=== PATIENT | male | born 1960 | race Caucasian/White ===

== ENCOUNTER 2020-05-16 00:42 | Inpatient (IN) | payer OTHER ==
[2020-05-16 00:55] VITALS: TEMP 97.8
[2020-05-16] MEDS ORDERED: KETOROLAC 15 MG/ML 1 ML VIAL IM STA (01:01)
[2020-05-16] MEDS ORDERED: SODIUM CHLORIDE 0.9% 1,000 ML IV ONE (01:02)
[2020-05-16] MEDS ORDERED: MIDAZOLAM 1 MG/ML 5 ML VIAL IV STA (01:03)
[2020-05-16] MEDS ORDERED: KETOROLAC 15 MG/ML 1 ML VIAL IVP STA (01:03)
--- NOTE | 2020-05-16 01:22 | XR ---
EXAMINATION TYPE: XR ankle complete LT DATE OF EXAM: 05/16/2020 COMPARISON: NONE HISTORY: Pain TECHNIQUE: 3 views FINDINGS: There is transverse fracture of the medial malleolus. There is oblique fracture of the dist al fibula. There is no dislocation. There is 9 mm lateral displacement of the talus. There is 9 mm la teral displacement of the tibia and fibula fragments. The tarsal bones appear intact. There is small Achilles calcaneal spur. IMPRESSION: Bimalleolar fracture of the left ankle with mild lateral displacement.
[2020-05-16 01:34] LABS: Basophils # (A) 0.1 k/uL (0-0.2); Basophils % (A) 1 %; Eosinophils # (A) 0.1 k/uL (0-0.7); Eosinophils % (A) 1 %; HCT 47.4 % (39.0-53.0); HGB 15.9 gm/dL (13.0-17.5); Lymphocytes # (A) 3.9 k/uL (1.0-4.8); Lymphocytes % (A) 41 %; MCH 32.1 pg (25.0-35.0); MCHC 33.5 g/dL (31.0-37.0); MCV 95.9 fL (80.0-100.0); Mean Platelet Volume 6.4; Monocytes # (A) 0.6 k/uL (0-1.0); Monocytes % (A) 6 %; Neutrophils # (A) 4.7 k/uL (1.3-7.7); Neutrophils % (A) 48 %; Platelet Count 271 k/uL (150-450); RBC 4.94 m/uL (4.30-5.90); RDW 12.3 % (11.5-15.5); WBC 9.7 k/uL (3.8-10.6)
[2020-05-16 01:44] LABS: ALT 37 U/L (4-49); AST 52 U/L (17-59); African American GFR (CKD) >90 (>60 ml/min/1.73 sqM); Albumin 4.3 g/dL (3.5-5.0); Alkaline Phosphatase 84 U/L (38-126); Anion Gap 11 mmol/L; Blood Urea Nitrogen 15 mg/dL (9-20); Calcium 8.8 mg/dL (8.4-10.2); Carbon Dioxide 21 mmol/L (22-30); Chloride 102 mmol/L (98-107); Glucose 92 mg/dL (74-99); Non-African American GFR(CKD) 87 (>60 ml/min/1.73 sqM); Potassium 5.6 mmol/L (3.5-5.1); Sodium 134 mmol/L (137-145); Total Bilirubin 0.6 mg/dL (0.2-1.3); Total Protein 6.9 g/dL (6.3-8.2)
[2020-05-16] MEDS ORDERED: KETAMINE 10 MG/ML 20 ML VIAL IV ONE ×2 (01:45→02:13)
--- NOTE | 2020-05-16 01:51 | CT ---
CT scan of the left ankle. History fracture. Injury. Pain. Comparison none. TECHNIQUE: Images were obtained from the lower tibia to the bottom of the foot without contrast. FINDINGS: There is transverse fracture of the medial malleolus. There is oblique fracture of the distal fibula at the lateral malleolus. There is lateral displacement of the talus and the fracture fragments. The lateral displacement is 9 mm. The posterior malleolus appears intact. The talus appears intact. The c alcaneus is intact. There are small Achilles calcaneal spur. Subtalar joint appears normal. Tarsal stef leatha are intact. The metatarsals are intact. There is minor spurring at the first MP joint. I see no f ocal bone destruction. The toes appear intact. IMPRESSION: Acute bimalleolar fracture of the ankle with mild lateral displacement of the fragments. No dislocati on.
[2020-05-16 01:59] LABS: INR 0.9 (<1.2); Partial Thromboplastin Time 24.6 sec (22.0-30.0); Prothrombin Time 9.6 sec (9.0-12.0)
[2020-05-16 02:00] LABS: Alcohol 272 mg/dL
--- NOTE | 2020-05-16 02:49 | ED ---
Lower Extremity Injury HPI - General Source: patient Mode of arrival: wheelchair Limitations: no limitations <Tania Garcia - Last Filed: 05/16/20 03:16> <Barbara Sykes - Last Filed: 05/16/20 04:24> - General Chief Complaint: Extremity Injury, Lower Stated Complaint: LT ankle injury Time Seen by Provider: 05/16/20 00:54 - History of Present Illness Initial Comments: 59-year-old male patient presented to the emergency department today for evaluation of left ankle injury. Patient states that he was running when he tripped and fell into a ditch. Patient states that he injured the ankle. Patient states he is having a lot of difficulty walking. Patient doesn't to drinking alcohol today. He denies any head, neck, or back injury. Denies previous injury to the ankle. Denies numbness or tingling to the foot. Patient denies any headache, neck pain, back pain, chest pain, shortness of breath, dizz iness, weakness, abdominal pain, nausea, vomiting, or difficulties with bowel movements or urination. (Tania Garcia) - Related Data Allergies Allergy/AdvReac Type Severity Reaction Status Date / Time Penicillins Allergy Unknown Verified 05/16/20 01:09 Childhood Review of Systems ROS Other: All systems not noted in ROS Statement are negative. <Tania Garcia - Last Filed: 05/16/20 03:16> ROS Other: All systems not noted in ROS Statement are negative. <Barbara Sykes - Last Filed: 05/16/20 04:24> ROS Statement: Those systems with pertinent positive or pertinent negative responses have been documented in the HPI. Past Medical History Past Medical History: No Reported History History of Any Multi-Drug Resistant Organisms: None Reported Past Surgical History: No Surgical Hx Reported Past Psychological History: No Psychological Hx Reported Smoking Status: Current every day smoker Past Alcohol Use History: Daily Past Drug Use History: None Reported <Tania Garcia - Last Filed: 05/16/20 03:16> General Exam Limitations: no limitations General appearance: alert, in no apparent distress, other (This is a well- developed, well-nourished adult male patient in no acute distress. Patient is obviously intoxicated and somewhat resistant to care. Vital signs upon presentation are temperature 97.8F, pulse 59, respirations 18, blood pressure 89/62, pulse ox 96% on room air.) Head exam: Present: atraumatic, normocephalic, normal inspection Eye exam: Present: normal appearance, PERRL, EOMI. Absent: scleral icterus, conjunctival injection, periorbital swelling Neck exam: Present: normal inspection, full ROM, other (Nontender, no step-off, no deformity to firm midline palpation of the posterior cervical spine. Full ra nge of motion without pain or limitation.). Absent: tenderness, meningismus, lymphadenopathy Respiratory exam: Present: normal lung sounds bilaterally. Absent: respiratory distress, wheezes, rales, rhonchi, stridor Cardiovascular Exam: Present: regular rate, normal rhythm, normal heart sounds. Absent: systolic murmur, diastolic murmur, rubs, gallop, clicks GI/Abdominal exam: Present: soft, normal bowel sounds. Absent: distended, tenderness, guarding, rebound, rigid Extremities exam: Present: full ROM, tenderness (Medial and lateral malleolus), normal capillary refill, other (There is obvious deformity of the left ankle. Skin is otherwise pink, warm, dry. Cap refills less than 3 seconds. Pedal and posttibial pulses are 2+ and equal bilaterally.). Absent: normal inspection, pedal edema, joint swelling, calf tenderness Back exam: Present: normal inspection, other (Nontender, no step-off, no deformity to firm midline palpation of the thoracic and lumbar vertebrae. Full range of motion without pain or limitation.). Absent: vertebral tenderness Neurological exam: Present: alert, oriented X3, CN II-XII intact Psychiatric exam: Present: normal affect, normal mood Skin exam: Present: warm, dry, intact, normal color. Absent: rash <Tania Garcia M - Last Filed: 05/16/20 03:16> Course Vital Signs 05/16/20 05/16/20 05/16/20 00:53 01:00 02:00 Temperature 97.8 F Pulse Rate 59 L 75 Respiratory 18 16 16 Rate Blood Pressure 89/62 107/49 112/69 O2 Sat by Pulse 96 94 L Oximetry Procedures - Orthopedic Splinting/Casting Injury #1 Side: left Lower Extremity Injury Location: short leg, ankle Lower Extremity Immobilizer: posterior splint, stirrup splint, Gerry wrap <Tania Garcia - Last Filed: 05/16/20 03:16> - [place] Protocol (Time Out) Procedure Performed:: sedation Performing Provider: Barbara Sykes Nurse: Meghann Escalera Respiratory Therapist: Priaynka Crane Timeout Date: 05/16/20 Timeout Time: 02:10 Patient Identification (2 identifiers required): Chart, Verbal, Arm Band, Name, Birthdate Patient/Legal [employer] has Confirmed: Identity, Site, Procedure, Consent Site: Left Ankle Site Marked: Not Applicable Site Verified With Patient/Guardian: Yes Final Confirmation: Procedure, Site, Laterality, Patient Position, Radiographs, Special Equipment, Confirmed w/Provider - Procedural Sedation Procedural Sedation Start Time: 02:10 Procedural Sedation Stop Time: 02:35 Indications: fracture/dislocation reduction ASA Class: II Mallampati Airway Score: 2 Preparation: skiagrapher applied, pulse oximeter, supplemental O2 applied, suction/airway equipment at bedside, IV secured Ketamine: IV Ketamine Dose: 88 Complications: none Patient Tolerated Procedure: well, no complications <Barbara Sykes - Last Filed: 05/16/20 04:24> - Orthopedic Splinting/Casting Injury #1 Additional Comments: Patient was padded with web roll. Neurovascular status intact after splint application. (Tania Garcia) Medical Decision Making - Lab Data Result diagrams: 05/16/20 01:20 05/16/20 01:20 - EKG Data -: EKG Interpreted by Co - Radiology Data Radiology results: report reviewed, image reviewed <Tania Garcia - Last Filed: 05/16/20 03:16> - Lab Data Result diagrams: 05/16/20 01:20 05/16/20 01:20 <Barbara Sykes - Last Filed: 05/16/20 04:24> - Medical Decision Making 59-year-old male patient presented to the emergency department today for evaluation of left ankle injury. Patient was intoxicated upon arrival and resistant to care. Physical examination did reveal soft tissue swelling and deformity to the left ankle. X-rays were obtained and did reveal a bimalleolar fracture. We did obtain labs which revealed an elevated alcohol level at 272. Otherwise were unremarkable. CT of the ankle was obtained to further evaluate the fracture, again revealed a bimalleolar fracture with lateral displacement of the fragments. Patient was very resistive to care and combative with staff so we did sedate him to apply a splint to the ankle. Patient would have been stable for discharge however he was too intoxicated to understand non-weightbearing status and care for his ankle. Also, he has no transportation or access to durable medical equipment. Dr. Randall is accepting. (Tania Garcia) I performed procedural sedation for the patient to aid in splinting due to the patient's level of intoxication and inability to cooperate. There was fear that the patient was a danger to himself if not in a splint because he was moving and attempting to walk, the bones are noted to be tenting the skin and I was c oncerned that if the patient attempted to stand he would open the fracture. Ketamine was used for sedation. Patient tolerated sedation well he had no emergence reaction or vomiting. After sedation patient was again attempting to stand on his splint attempting to get out of bed, not following instructions. The patient has no signs of head injury and he is profoundly intoxicated we will obtain head CT to rule out any acute intracranial abnormalities and plan to admit the patient for his own safety due to alcohol intoxication. This plan was discussed with Forrest VAZQUEZ for orthopedics on-call Dr. Ervin, he recommends admission to medicine for alcohol intoxication as a by mouth fracture is stable for discharge home and the patient is being admitted solely due to his intoxication and inability to adhere to treatment plan. Patient will be admitted for alcohol intoxication, alcohol withdrawal protocol was ordered. Due to persistent concern that the patient was non coperative and was trying to get out of bed he was treated with Shayne (Barbara Sykes) - Lab Data Lab Results 05/16/20 05/16/20 05/16/20 Range/Units 01:15 01:20 01:20 WBC 9.7 (3.8-10.6) k/uL RBC 4.94 (4.30-5.90) m/uL Hgb 15.9 (13.0-17.5) gm/dL Hct 47.4 (39.0-53.0) % MCV 95.9 (80.0-100.0) fL MCH 32.1 (25.0-35.0) pg MCHC 33.5 (31.0-37.0) g/dL RDW 12.3 (11.5-15.5) % Plt Count 271 (150-450) k/uL Neutrophils % 48 % Lymphocytes % 41 % Monocytes % 6 % Eosinophils % 1 % Basophils % 1 % Neutrophils # 4.7 (1.3-7.7) k/uL Lymphocytes # 3.9 (1.0-4.8) k/uL Monocytes # 0.6 (0-1.0) k/uL Eosinophils # 0.1 (0-0.7) k/uL Basophils # 0.1 (0-0.2) k/uL PT 9.6 (9.0-12.0) sec INR 0.9 (<1.2) APTT 24.6 (22.0-30.0) sec Sodium (137-145) mmol/L Potassium (3.5-5.1) mmol/L Chloride (98-107) mmol/L Carbon Dioxide (22-30) mmol/L Anion Gap mmol/L BUN (9-20) mg/dL Creatinine (0.66-1.25) mg/dL Est GFR (CKD-EPI)AfAm (>60 ml/min/1.73 sqM) Est GFR (CKD-EPI)NonAf (>60 ml/min/1.73 sqM) Glucose (74-99) mg/dL Calcium (8.4-10.2) mg/dL Total Bilirubin (0.2-1.3) mg/dL AST (17-59) U/L ALT (4-49) U/L Alkaline Phosphatase (38-126) U/L Total Protein (6.3-8.2) g/dL Albumin (3.5-5.0) g/dL Serum Alcohol mg/dL Blood Type Blood Type Confirm O Positive Blood Type Recheck Bld Type Recheck Status Antibody Screen Spec Expiration Date 05/16/20 05/16/20 Range/Units 01:20 01:20 WBC (3.8-10.6) k/uL RBC (4.30-5.90) m/uL Hgb (13.0-17.5) gm/dL Hct (39.0-53.0) % MCV (80.0-100.0) fL MCH (25.0-35.0) pg MCHC (31.0-37.0) g/dL RDW (11.5-15.5) % Plt Count (150-450) k/uL Neutrophils % % Lymphocytes % % Monocytes % % Eosinophils % % Basophils % % Neutrophils # (1.3-7.7) k/uL Lymphocytes # (1.0-4.8) k/uL Monocytes # (0-1.0) k/uL Eosinophils # (0-0.7) k/uL Basophils # (0-0.2) k/uL PT (9.0-12.0) sec INR (<1.2) APTT (22.0-30.0) sec Sodium 134 L (137-145) mmol/L Potassium 5.6 H (3.5-5.1) mmol/L Chloride 102 (98-107) mmol/L Carbon Dioxide 21 L (22-30) mmol/L Anion Gap 11 mmol/L BUN 15 (9-20) mg/dL Creatinine 0.95 (0.66-1.25) mg/dL Est GFR (CKD-EPI)AfAm >90 (>60 ml/min/1.73 sqM) Est GFR (CKD-EPI)NonAf 87 (>60 ml/min/1.73 sqM) Glucose 92 (74-99) mg/dL Calcium 8.8 (8.4-10.2) mg/dL Total Bilirubin 0.6 (0.2-1.3) mg/dL AST 52 (17-59) U/L ALT 37 (4-49) U/L Alkaline Phosphatase 84 (38-126) U/L Total Protein 6.9 (6.3-8.2) g/dL Albumin 4.3 (3.5-5.0) g/dL Serum Alcohol 272 H* mg/dL Blood Type O Positive Blood Type Confirm Blood Type Recheck No Previous Record Bld Type Recheck Status CABO Indicated Antibody Screen NEGATIVE Spec Expiration Date 05/19/2020 - 2319 - EKG Data EKG Comments: EKG obtained at 137 shows normal sinus rhythm with a ventricular rate of 68, [place] interval 186, QRS duration 92, QT 390, QTC 414. No evidence of ST elevation or depression. (Tania Garcia) - Radiology Data 3 views of the left ankle are obtained. Report is reviewed in its entirety. Impression by Dr. Harmon shows bimalleolar fracture of the left ankle is mild lateral displacement. CT of the left ankle and foot was obtained. Report was reviewed in its entirety. Impression by Dr. Harmon shows acute bimalleolar fracture of the ankle with mild lateral displacement of fragments. No dislocation. (Tania Garcia) Disposition Decision to Admit Reason: Admit from EC Decision Date: 05/16/20 Decision Time: 03:00 <Tania Garcia - Last Filed: 05/16/20 03:16> <Barbara Sykes - Last Filed: 05/16/20 04:24> Clinical Impression: Alcohol intoxication, Bimalleolar fracture of left ankle Disposition: ADMITTED IP TO THIS [facility] Condition: Serious
[2020-05-16] MEDS ORDERED: ZIPRASIDONE 20 MG VIAL IM STA (02:54)
[2020-05-16] MEDS ORDERED: NALOXONE 0.4 MG/ML 1 ML VIAL IV PRN (03:04)
[2020-05-16] MEDS ORDERED: THIAMINE 100 MG/ML 2 ML VIAL IM STA (03:06)
[2020-05-16] MEDS ORDERED: LORazepam 2 MG/ML INJ IV PRN ×4 (03:06)
--- NOTE | 2020-05-16 03:30 | P.HPIM ---
History of Present Illness H&P Date: 05/16/20 Chief Complaint: Left ankle pain 59-year-old male came into the hospital due to left ankle pain after sustaining a fall. He admits to drinking all call today. Currently patient is very combative and aggressive I wasn't able to interview the patient and her obtain any meaningful history patient requesting to leave the hospital however he is too intoxicated to understand plan of care as he should not weight-bear on his left foot due to fragmented fracture. Patient is aggressive and resisting care and recommendations, he was given Geodon in the ED and was still being very aggressive and combative security had to be called multiple times in the patient while I was in the room trying to interview him Per ER note seems like patient had some alcohol today and he fell into a ditch after which she noticed some pain in his left ankle and decided to come the hospital for evaluation CT imaging showed fragmented fracture of bilateral malleoli or so contacted recommended outpatient follow-up and placing the patient splint however patient was kept in the hospital due to severe alcohol intoxication and being very resistive to care and not understanding the severity of his injury and plan of care Review of Systems ROS unobtainable: due to mental status Past Medical History Past Medical History: No Reported History, Unable to Obtain History of Any Multi-Drug Resistant Organisms: None Reported Past Surgical History: No Surgical Hx Reported, Unable to Obtain Past Anesthesia/Blood Transfusion Reactions: Unable to Obtain Past Psychological History: No Psychological Hx Reported, Unable to Obtain Smoking Status: Current every day smoker Past Alcohol Use History: Daily Past Drug Use History: None Reported, Unable to Obtain - Past Family History Family Family Medical History: Unable to Obtain Medications and Allergies Allergies Allergy/AdvReac Type Severity Reaction Status Date / Time Penicillins Allergy Unknown Verified 05/16/20 01:09 Childhood Physical Exam Vitals: Vital Signs Temp Pulse Resp BP Pulse Ox 05/16/20 02:00 75 16 112/69 94 L 05/16/20 01:00 16 107/49 05/16/20 00:53 97.8 F 59 L 18 89/62 96 Intake and Output 05/15/20 05/15/20 05/16/20 14:59 22:59 06:59 Other: Weight 88.904 kg Deferred patient is currently combative resisting care yelling and screaming requesting to leave the hospital Results CBC & Chem 7: 05/16/20 01:20 05/16/20 01:20 Labs: Abnormal Lab Results - Last 24 Hours (Table) 05/16/20 Range/Units 01:20 Sodium 134 L (137-145) mmol/L Potassium 5.6 H (3.5-5.1) mmol/L Carbon Dioxide 21 L (22-30) mmol/L Serum Alcohol 272 H* mg/dL Assessment and Plan Assessment: Closed fracture of the left ankle secondary to a fall Status post splint Pain control Outpatient follow-up with orthopedics per their recommendations Patient is too intoxicated to cooperate or understand treatment plan he is very resistant to care combative with staff. Patient was kept in the hospital for his own safety Mild hyperkalemia Repeat levels in the morning Acute severe alcohol intoxication secondary to topical abuse Full precautions Benzos per CIWA scale Thiamine CODE STATUS: Full code DVT prophylaxis: Heparin subcu 3 times a day Discussed with: Patient, ER, RN Anticipated length of stay less than [address]: Home once sober
--- NOTE | 2020-05-16 04:41 | CT ---
EXAMINATION TYPE: CT brain nadeen braxton con DATE OF EXAM: 05/16/2020 COMPARISON: None HISTORY: Fall CT DLP: 1572.10 mGycm Automated exposure control for dose reduction was used. Exam performed without contrast. There is some cerebral cortical atrophy. There is no mass effect nor midline shift. There is no sign of intracranial hemorrhage. Calvarium is intact. There is normal aeration of the mastoid sinuses. The re is mucosal thickening in the right maxillary sinus. Bony orbits are intact. There is no evidence o f a blowout fracture. There is no evidence of orbital mass. There is some straightening of the cervical spine. There is disc space narrowing and spurring at C4-5 and C5-6. There is posterior endplate spur formation at C5-6 with mild encroachment on the spinal ca nal. The facet joints are intact. There is no evidence of cervical spine fracture. 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 No fracture. Mild cerebral atrophy. No acute intracranial abnormality. Mild right maxillary sinusitis.
[2020-05-16 04:51] VITALS: BP 134/90; PULSE 78; RESP 16
[2020-05-16 07:50] LABS: Appearance,Urine Clear (Clear); Bilirubin,Urine Negative (Negative); Blood,Urine Negative (Negative); Color,Urine Light Yellow; Glucose,Urine (UA) Negative (Negative); Ketones,Urine Negative (Negative); Leukocyte Esterase,Urine Negative (Negative); Nitrite,Urine Negative (Negative); Protein,Urine Negative (Negative); Specific Gravity,Urine 1.004 (1.001-1.035); Urobilinogen,Urine <2.0 mg/dL (<2.0)
[2020-05-16 08:03] LABS: Amphetamine Screen,Urine Not Detected (NotDetected); Barbiturate Screen,Urine Not Detected (NotDetected); Benzodiazepines Screen,Urine Not Detected (NotDetected); Cocaine Screen,Urine Not Detected (NotDetected); Methadone Screen, Urine Not Detected (NotDetected); Opiate Screen,Urine Not Detected (NotDetected); Oxycodone Screen, Urine Not Detected (NotDetected); Phencyclidine Screen,Urine Not Detected (NotDetected); Tricyclic Antidepressant,Urine Not Detected (NotDetected); Urn Cannabinoid Scrn Not Detected (NotDetected)
[2020-05-16] MEDS: MORPHINE SULFATE 4 MG/ML SYRINGE IV PRN ×2 (09:42→12:49)
--- NOTE | 2020-05-16 11:59 | P.CNOR ---
History of Present Illness - [facility] Consult date: 05/16/20 Requesting physician: Barbara Sykes Consult reason: fracture (left ankle bimalleolar fracture) History of present illness: Patient is a 59-year-old male who is seen in the emergency department room #28 for further evaluation of his left ankle. Patient admits to drinking alcohol and was drunk yesterday. He sustained a fall in a ditch. He has had left ankle pain that time difficulty with ambulation. He did present ambulatory to the emergency department. He was aggressive and combative at that time. His serum alcohol level was 272 at that time. X-ray and CT imaging of the left ankle is taken at time which did show evidence of a bimalleolar ankle fracture. He was placed in a splint and admitted for further evaluation due to his intoxication as I did not feel the patient was seen to go home. The patient has since sobered up and is answering questions properly. He had a splint placed over the left lower extremity. He has remained nonweightbearing on the left lower extremity. He continues have some pain at the left ankle but his pain has been fairly well controlled. He denies any other injuries at the time of the fall. Past Medical History Past Medical History: No Reported History, Unable to Obtain History of Any Multi-Drug Resistant Organisms: None Reported Past Surgical History: No Surgical Hx Reported, Unable to Obtain Past Anesthesia/Blood Transfusion Reactions: Unable to Obtain Past Psychological History: No Psychological Hx Reported, Unable to Obtain Smoking Status: Current every day smoker Past Alcohol Use History: Daily Past Drug Use History: None Reported, Unable to Obtain - Past Family History Family Family Medical History: Unable to Obtain Medications and Allergies Home Medications Medication Instructions Recorded Confirmed Type Unknown Bp Med 5 mg PO DAILY 05/16/20 05/16/20 History Allergies Allergy/AdvReac Type Severity Reaction Status Date / Time Penicillins Allergy Unknown Verified 05/16/20 10:25 Childhood Physical Examination Physical Exam: Patient is awake, alert, and oriented 3 Vital signs stable Good chest excursion with deep inspiration and expiration Posterior splint placement over the left lower extremity Splint is clean, dry, intact No pain with palpation of the left knee Patient is able to wiggle toes left foot Neurovascular intact left lower extremity Splint is not removed physical examination Results Pertinent studies: X-rays left ankle taken on 05/16/2020: Evidence of bimalleolar fracture of the left ankle with mild lateral displacement CT of the left ankle taken on 05/16/2020: Evidence of acute bimalleolar left ankle fracture transverse fracture of the medial malleolus in oblique fracture of the distal fibula at the lateral malleolus with lateral displacement of the fragment; no evidence of dislocation - Labs Labs: Abnormal Lab Results - Last 24 Hours (Table) 05/16/20 Range/Units 01:20 Sodium 134 L (137-145) mmol/L Potassium 5.6 H (3.5-5.1) mmol/L Carbon Dioxide 21 L (22-30) mmol/L Serum Alcohol 272 H* mg/dL H & H 05/16/20 Range/Units 01:20 Hgb 15.9 (13.0-17.5) gm/dL Hct 47.4 (39.0-53.0) % Coagulation 05/16/20 Range/Units 01:20 INR 0.9 (<1.2) Result Diagrams: 05/16/20 01:20 05/16/20 01:20 Assessment and Plan Assessment: Assessment: Left bimalleolar ankle fracture Status post fall Left ankle pain Intoxication at presentation to the emergency department (1) Left ankle pain Current Visit: Yes Status: Acute Code(s): M25.572 - PAIN IN LEFT ANKLE AND JOINTS OF LEFT FOOT SNOMED Code(s): 750366884 (2) Status post fall Current Visit: Yes Status: Acute Code(s): Z91.81 - HISTORY OF FALLING SNOMED Code(s): 871088605 (3) Alcohol intoxication Current Visit: Yes Status: Acute Code(s): F10.929 - ALCOHOL USE, UNSPECIFIED WITH INTOXICATION, UNSPECIFIED SNOMED Code(s): 88199710 (4) Bimalleolar fracture of left ankle Current Visit: Yes Status: Acute Code(s): S82.842A - DISPLACED BIMALLEOLAR FRACTURE OF LEFT LOWER LEG, INIT SNOMED Code(s): 996655091 Plan: Plan: 1. Patient has been discussed in detail Dr. Juan Ervin. After reviewing of imaging, further discussion with the patient, physical examination of the patient, we'll currently planned to continue with conservative treatment regards to his left ankle. He currently has a posterior splint placed at the left lower extremity. We discussed the splint should remain clean, dry, and intact. He is strict nonweightbearing on left lower extremity. He may elevate and apply ice over the splint comfort support as needed. We did discuss based on his fractures he will need surgical intervention to stabilize these fractures. We discussed we would plan to allow some of the swelling to reduce over the next week and we'll plan for surgical intervention next 05/24/2020. Patient will be cleared for discharge from an orthopedic standpoint. We'll plan have the patient follow up next 05/22/2020, for further evaluation the outpatient setting. He will follow up with Lyle Lozoya PA-C or Dr[facility]. 2. Patient has also been discussed with case management. A prescription is written for crutches. Patient may use crutches to aid in ambulation as needed. Crutches will be supplied prior to discharge. 3. Patient will continue to be seen and examined by medicine for further treatment and evaluation regards to his intoxication. Time with Patient: Greater than 30 (Including obtaining history, physical examination, reviewing of imaging, and dictation.)
--- NOTE | 2020-05-16 14:58 | P.DS ---
Providers Date of admission: 05/16/20 12:14 Expected date of discharge: 05/16/20 Attending physician: Vannessa Randall MD Consults: 05/16/20 03:05 Consult Physician Urgent Consulting Provider: Brina Ervin Consult Reason/Comments: marty Do you want consulting provider notified?: Already Contacted Primary care physician: Stated None Assessment: 59-year-old male came into the hospital due to left ankle pain after sustaining a fall. He admits to drinking all day prior to presentation. Patient was evaluated in the ER and was found to have closed fracture of the left ankle s econdary to his fall. He was also intoxicated with alcohol. Patient remained on observation and received aggressive IV fluid hydration. He had mild hyperkalemia that resolved with repeat lab work in the morning. He was seen and evaluated by orthopedic surgery. He was provided with crutches and his ankle was put in a splint. He was instructed for intermittent icing and leg elevation. Plan for surgical intervention next week. Patient was counseled extensively regarding alcohol cessation. He was provided with a prescription for [place] for pain control. He will be discharged home in a stable condition. He was sober at the time of discharge. For further details about this hospitalization please refer to the electronic chart. Patient Condition at Discharge: Serious Plan - Discharge Summary Discharge Rx Participant: Yes New Discharge Prescriptions: No Action Unknown Bp Med 5 mg PO DAILY Discharge Medication List Unknown Bp Med 5 mg PO DAILY 05/16/20 [History] Follow up Appointment(s)/Referral(s): Lyle Lozoya, BONY [PHYSICIAN TREE EXPERT] - 05/22/20 (Patient may follow-up with Lyle Lozoya PA-C or Dr. Juan Ervin at [facility] on 05/22/2020 following discharge. ) None,Stated [Primary Care Provider] - 1-2 days Patient Instructions/Handouts: Ankle Fracture (DC) Activity/Diet/Wound Care/Special Instructions: 1. Strict nonweightbearing on the left lower extremity 2. Keep splint over the left lower extremity clean, dry, intact 3. May elevate the left lower extremity and apply ice over the splint for comfort support as needed Discharge Disposition: HOME SELF-CARE
[2020-05-16] MEDS ORDERED: THIAMINE 100 MG TAB PO SCH (17:30)
== END 2020-05-16 16:36 | disposition home or self-care (01) | DRG 897 ==
LOC: EC 00:42 → 4SSUR 03:07 → OBSVTOIN 12:14 → 4SSUR 13:00
PROVIDERS: ADMIT Internal Medicine; ATTEND Internal Medicine
PROC: 2W3MX1Z Immobilization of Left Lower Extremity using Splint (ICD-10-PCS; principal; 2020-05-16)
DX: F10.120 Alcohol abuse with intoxication, uncomplicated (principal); S82.842A Displaced bimalleolar fracture of left lower leg, initial encounter for closed fracture; F17.200 Nicotine dependence, unspecified, uncomplicated; E87.5 Hyperkalemia; W17.89XA Other fall from one level to another, initial encounter; Y90.8 Blood alcohol level of 240 mg/100 ml or more; Y93.02 Activity, running; Z79.899 Other long term (current) drug therapy; Z88.0 Allergy status to penicillin
CPT/HCPCS: 29515; 36415; 70450; 72125; 80053; 80306; 80320; 81003; 84132; 85025; 85610; 85730; 86850; 86900; 86901; 93005; 96361; 96372; 96374; 96375; 96376; 99152; 99285

== ENCOUNTER → 2020-05-29 | Outpatient (CLI) | payer OTHER ==
[2020-05-29 12:18] LABS: Basophils % (A) 0 %; Eosinophils # (A) 0.1 k/uL (0-0.7); Eosinophils % (A) 1 %; HCT 49.5 % (39.0-53.0); HGB 16.5 gm/dL (13.0-17.5); Lymphocytes # (A) 2.3 k/uL (1.0-4.8); Lymphocytes % (A) 27 %; MCH 32.1 pg (25.0-35.0); MCHC 33.3 g/dL (31.0-37.0); MCV 96.4 fL (80.0-100.0); Mean Platelet Volume 6.3; Monocytes # (A) 0.5 k/uL (0-1.0); Monocytes % (A) 6 %; Neutrophils # (A) 5.4 k/uL (1.3-7.7); Neutrophils % (A) 64 %; Platelet Count 313 k/uL (150-450); RBC 5.14 m/uL (4.30-5.90); RDW 12.6 % (11.5-15.5); WBC 8.4 k/uL (3.8-10.6)
[2020-05-29 12:27] LABS: African American GFR (CKD) >90 (>60 ml/min/1.73 sqM); Anion Gap 6 mmol/L; Blood Urea Nitrogen 11 mg/dL (9-20); Calcium 9.8 mg/dL (8.4-10.2); Carbon Dioxide 29 mmol/L (22-30); Chloride 103 mmol/L (98-107); Glucose 99 mg/dL (74-99); INR 0.9 (<1.2); Non-African American GFR(CKD) >90 (>60 ml/min/1.73 sqM); Partial Thromboplastin Time 25.9 sec (22.0-30.0); Potassium 4.6 mmol/L (3.5-5.1); Prothrombin Time 9.7 sec (9.0-12.0); Sodium 138 mmol/L (137-145)
[2020-05-29 13:10] LABS: Appearance,Urine Clear (Clear); Bilirubin,Urine Negative (Negative); Blood,Urine Negative (Negative); Color,Urine Yellow; Glucose,Urine (UA) Negative (Negative); Ketones,Urine Negative (Negative); Leukocyte Esterase,Urine Negative (Negative); Nitrite,Urine Negative (Negative); Protein,Urine Negative (Negative); Specific Gravity,Urine 1.016 (1.001-1.035); Urobilinogen,Urine <2.0 mg/dL (<2.0)
--- NOTE | 2020-05-29 14:02 | XR ---
EXAMINATION TYPE: XR chest 2V DATE OF EXAM: 05/29/2020 COMPARISON: None HISTORY: 59-year-old male Z01.818, presurgical testing TECHNIQUE: PA and lateral views FINDINGS: The cardiomediastinal silhouette, aorta, and pulmonary vasculature are within normal limits. Lungs an d pleural spaces are clear. Mild hyperinflation. Tiny 4 mm retained metallic shard within the anterio r left mid thoracic soft tissues. IMPRESSION: 1. Mild hyperinflation may relate to depth of inspiration or underlying emphysema. Clinically correla te. Otherwise, no acute process seen. 2. A tiny 4 mm retained metallic foreign body within the anterior left mid chest soft tissues.
== END | disposition home or self-care (01) ==
LOC: LABPAT 11:06
PROVIDERS: ATTEND Orthopaedic Surgery Orthopaedic Surgery of the Spine
DX: Z01.818 Encounter for other preprocedural examination (principal); S82.842A Displaced bimalleolar fracture of left lower leg, initial encounter for closed fracture
CPT/HCPCS: 36415; 71046; 80048; 81003; 85025; 85610; 85730

== ENCOUNTER 2020-05-31 11:51 | Day surgery (SDC) | payer OTHER ==
[~2020-05-31 11:51] MED LIST: DEXAMETHASONE SOD PHOSPHATE 10 MG/ML 1 ML VIAL IV ONE; MIDAZOLAM 2 MG/2 ML VIAL IV PRN; ONDANSETRON 4 MG/2 ML VIAL IVP ONE; SCOPOLAMINE 1.5MG/72HR PATCH TRANSDERM ONE; ceFAZolin 1,000 MG in SODIUM CHLORIDE 0.9% IRRIGATIO 1,000 ML IRRIGATION ONE; fentaNYL (PF) 50 MCG/ML 2 ML AMP IV PRN; fentaNYL (PF) 50 MCG/ML 2 ML AMP IVP PRN
[2020-05-31] MEDS ORDERED: LIDOCAINE 1% (10MG/ML) FOR IV START INTRADERMA ONE (14:08)
[2020-05-31] MEDS: LACTATED RINGERS 1,000 ML IV SCH ×2 (14:08→21:45)
[2020-05-31] MEDS ORDERED: MIDAZOLAM 2 MG/2 ML VIAL IV ONE (14:23)
--- NOTE | 2020-05-31 14:46 | P.ANPRN ---
Procedure Note - Anesthesia - Nerve Block Performed Left Popliteal Single Time Out Performed: Yes Date of Procedure: 05/31/20 Procedure Start Time: 14:26 Procedure Stop Time: 14:33 Location of Patient: PreOp Indication: Acute Post-Operative Pain, Requested by Surgeon Sedation Type: Sedate with meaningful contact maintained Preparation: Sterile Prep, Sterile Dressing Position: Supine Catheter: None Needle Types: Pajunk Needle Gauge: 21 Ultrasound used to visualize needle placement: Yes Ultrasound used to observe medication spread: Yes Injectate: 0.5% Ropivacaine (see comment for volume) (15 ml + decadron 2 mg) Blood Aspirated: No Pain Paresthesia on Injection Noted: No Resistance on Injection: Normal Image Stored and Saved: Yes Events: Uneventful and Well Tolerated
--- NOTE | 2020-05-31 14:47 | P.ANPRN ---
Procedure Note - Anesthesia - Nerve Block Performed Left Adductor Canal Single Date of Procedure: 05/31/20 Procedure Start Time: 14:34 Procedure Stop Time: 14:40 Location of Patient: PreOp Indication: Acute Post-Operative Pain, Requested by Surgeon Sedation Type: Sedate with meaningful contact maintained Preparation: Sterile Prep, Sterile Dressing Position: Supine Catheter: None Needle Types: Pajunk Needle Gauge: 21 Ultrasound used to visualize needle placement: Yes Ultrasound used to observe medication spread: Yes Injectate: 0.5% Ropivacaine (see comment for volume) (15 ml + decadron 2 mg) Blood Aspirated: No Pain Paresthesia on Injection Noted: No Resistance on Injection: Normal Image Stored and Saved: Yes Events: Uneventful and Well Tolerated
[2020-05-31] MEDS ORDERED: LIDOCAINE 1% INJ 10MG/ML (20 ML MDV) ONE (16:31)
[2020-05-31] MEDS ORDERED: PROPOFOL 10 MG/ML 20 ML VIAL IV ONE (16:31)
[2020-05-31] MEDS ORDERED: HYDROmorphone (PF) 1 MG/ML ONE (16:31)
[2020-05-31] MEDS ORDERED: fentaNYL (PF) 50 MCG/ML 2 ML AMP ONE (16:31)
[2020-05-31] MEDS ORDERED: KETAMINE 10 MG/ML 20 ML VIAL ONE (16:31)
[2020-05-31] MEDS ORDERED: MIDAZOLAM 2 MG/2 ML VIAL ONE (16:31)
[2020-05-31] MEDS ORDERED: SUCCINYLCHOLINE CHLORIDE 100 MG/5 ML SYR IV ONE (16:31)
[2020-05-31] MEDS ORDERED: BUPIVACAINE (PF) 0.25% 30 ML VIAL SQ ONE (17:04)
[2020-05-31] MEDS ORDERED: LACTATED RINGERS 1,000 ML IV ONE (17:11)
[2020-05-31] MEDS ORDERED: BENZOCAINE/MENTHOL LOZENG 1 EACH LOZENGE MUCOUS MEM PRN (18:23)
[2020-05-31] MEDS ORDERED: HYDROmorphone 0.5 MG/0.5 ML SYRINGE IVP PRN (18:23)
[2020-05-31] MEDS ORDERED: HYDROmorphone 1 MG/ML 1 ML SYRINGE IVP PRN (18:23)
[2020-05-31] MEDS ORDERED: HYDROcodone/APAP 5-325MG 1 EACH TAB PO PRN ×2 (18:23)
[2020-05-31] MEDS: HYDROmorphone 0.5 MG/0.5 ML SYRINGE IVP PRN ×4 (18:31→18:52)
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
[2020-05-31] MEDS: SODIUM CHLORIDE 0.9% 1,000 ML IV SCH (19:22)
--- NOTE | 2020-05-31 21:25 | XR ---
Fluoroscopy INDICATION: Pain FINDINGS: Fluoroscopy time: 45 seconds. Images obtained: 4. IMPRESSIONS: 1. Documentation of fluoroscopy.
[2020-05-31] MEDS: diazePAM 5 MG TAB PO PRN (23:04)
[2020-06-01 07:52] VITALS: BP 161/89; PULSE 88; RESP 17; TEMP 98.9
[2020-06-01] MEDS: diazePAM 5 MG TAB PO PRN (08:15)
[2020-06-01] MEDS: SODIUM CHLORIDE 0.9% 1,000 ML IV SCH (08:15)
--- NOTE | 2020-06-01 08:32 | P.DS ---
Providers Date of admission: 05/31/2020 Attending physician: Brina Ervin Primary care physician: Stated None Hospital Course: The patient presented on the day of admission as per their operative note. He had a bimalleolar ankle fracture which was displaced and underwent open reduction internal fixation yesterday. He feels he is doing well. His ankle feels stable. Physical Exam The incision site is clean dry and intact. There is no erythema no drainage. There is no purulence no evidence of infection. The splint is intact and he is moving his toes well. Abdomen soft and nontender. Chest has good excursion with deep inspiration and expiration. The patient has active and passive range of motion intact at the upper and lower extremities. There is no acute change in neurologic status. Hospital Course Postoperative day 1 status post open reduction internal fixation of bimalleolar ankle fracture, doing well. The patient has been making good progress postoperatively. They have completed the prophylactic antibiotics without any signs or symptoms of infection. The patient has been able to advance their diet, and is tolerating diet adequately. The pain was initially controlled with IV medications and is now controlled appropriately with oral medications. The patient has been able to increase their mobilization. The patient has progressed appropriately. I think they are in good stable condition for discharge today. They will be sent home with appropriate prescriptions. I answered their questions to the best of my ability in a language that they can understand and they are agreeable with the plan. They will follow up as directed. Patient Condition at Discharge: Good Plan - Discharge Summary Discharge Rx Participant: No New Discharge Prescriptions: No Action amLODIPine BESYLATE 1 tab PO DAILY Atorvastatin Calcium [Lipitor] 1 tab PO DAILY Discharge Medication List Atorvastatin Calcium [Lipitor] 1 tab PO DAILY 05/31/20 [History] amLODIPine BESYLATE 1 tab PO DAILY 05/31/20 [History] Follow up Appointment(s)/Referral(s): Brina Ervin, [Doctor of Osteopathic Medicine] - 1 Week Activity/Diet/Wound Care/Special Instructions: Keep site clean. Keep splint intact at left lower extremity. Do not remove. Elevate left lower extremity as much as possible. Nonweightbearing left lower extremity. Discharge Disposition: HOME SELF-CARE
[2020-06-01] MEDS ORDERED: ATORVASTATIN 20 MG TAB PO SCH (09:00)
[2020-06-01] MEDS ORDERED: amLODIPine 10 MG TAB PO SCH (09:00)
== END 2020-06-01 09:50 | disposition home or self-care (01) ==
LOC: OR 11:51 → 4SSUR 18:18 → OR 06-01 09:50
PROVIDERS: ATTEND Orthopaedic Surgery Orthopaedic Surgery of the Spine
DX: S82.842A Displaced bimalleolar fracture of left lower leg, initial encounter for closed fracture (principal); W01.0XXA Fall on same level from slipping, tripping and stumbling without subsequent striking against object, initial encounter; I10 Essential (primary) hypertension; E78.5 Hyperlipidemia, unspecified; F17.210 Nicotine dependence, cigarettes, uncomplicated; Z98.890 Other specified postprocedural states; Z83.3 Family history of diabetes mellitus; Z97.2 Presence of dental prosthetic device (complete) (partial); Z79.1 Long term (current) use of non-steroidal anti-inflammatories (NSAID); Z88.0 Allergy status to penicillin
CPT/HCPCS: 27814; 64447; 73610; 64450; C1713; J2250; J1100; J0690 ×3; J2405; J2001; J3010; J1170 ×2; J0330; J2704

== ENCOUNTER 2024-08-05 00:24 | Emergency (ER) | payer OTHER ==
[2024-08-05 01:07] LABS: Basophils % (A) 0 %; Eosinophils # (A) 0.1 k/uL (0-0.7); Eosinophils % (A) 1 %; HCT 42.1 % (39.0-53.0); HGB 14.7 gm/dL (13.0-17.5); Lymphocytes # (A) 2.1 k/uL (1.0-4.8); Lymphocytes % (A) 27 %; MCH 35.3 pg (25.0-35.0); Macrocytosis Slight; Monocytes # (A) 0.6 k/uL (0-1.0); Monocytes % (A) 7 %; Neutrophils # (A) 4.8 k/uL (1.3-7.7); Neutrophils % (A) 62 %; Platelet Count 290 k/uL (150-450); RBC 4.16 m/uL (4.30-5.90); RDW 13.6 % (11.5-15.5); WBC 7.7 k/uL (3.8-10.6)
[2024-08-05] MEDS: SODIUM CHLORIDE 0.9% 2,000 ML IV ONE (01:19)
--- NOTE | 2024-08-05 01:28 | CT ---
EXAM: CT Head Without Intravenous Contrast CLINICAL HISTORY: ITS.REASON CT Reason: fall TECHNIQUE: Axial computed tomography images of the head/brain without intravenous contrast. CTDI is 25.8 mGy and DLP is 785.3 mGy-cm. This CT exam was performed using one or more of the following dose reduction techniques: automated exposure control, adjustment of the mA and/or kV according to patient size, and/or use of iterative reconstruction technique. COMPARISON: No relevant prior studies available. FINDINGS: No acute intracranial hemorrhage. No midline shift or mass effect. The territorial chambers-white matter differentiation is maintained throughout. Age-related cerebral volume loss. Periventricular and subcortical white matter hypoattenuation, consistent with chronic microangiopathy. The visualized orbits appear grossly unremarkable. The calvarium is intact. The visualized paranasal sinuses and mastoid air cells are grossly clear. IMPRESSION: No acute intracranial hemorrhage, midline shift, or mass effect. EXAM: CT Cervical Spine Without Intravenous Contrast CLINICAL HISTORY: ITS.REASON CT Reason: fall TECHNIQUE: Axial computed tomography images of the cervical spine without intravenous contrast. CTDI is 9.1 mGy and DLP is 294.6 mGy-cm. This CT exam was performed using one or more of the following dose reduction techniques: automated exposure control, adjustment of the mA and/or kV according to patient size, and/or use of iterative reconstruction technique. COMPARISON: No relevant prior studies available. FINDINGS: The vertebral body heights are maintained. The craniocervical junction is intact. The atlanto-dens interval is maintained. The dens is intact. There is no spondylolisthesis. Multilevel cervical spondylosis and degenerative disc disease. Straightening of the cervical lordosis. IMPRESSION: No acute fracture or subluxation of the cervical spine.
[2024-08-05 01:32] LABS: ALT 25 U/L (4-49); AST 36 U/L (17-59); African American GFR (CKD) >90 (>60 ml/min/1.73 sqM); Albumin 4.5 g/dL (3.5-5.0); Alkaline Phosphatase 99 U/L (38-126); Anion Gap 10 mmol/L; Blood Urea Nitrogen 12 mg/dL (9-20); Calcium 9.1 mg/dL (8.4-10.2); Carbon Dioxide 23 mmol/L (22-30); Chloride 104 mmol/L (98-107); Glucose 90 mg/dL (74-99); Non-African American GFR(CKD) >90 (>60 ml/min/1.73 sqM); Potassium 4.6 mmol/L (3.5-5.1); Sodium 137 mmol/L (137-145); Total Bilirubin 0.5 mg/dL (0.2-1.3)
[2024-08-05 01:38] LABS: Alcohol 291 mg/dL
--- NOTE | 2024-08-05 01:45 | CT ---
EXAM: CT Maxillofacial Without Intravenous Contrast CLINICAL HISTORY: ITS.REASON CT Reason: fall TECHNIQUE: Axial computed tomography images of the face without intravenous contrast. CTDI is 25.8 mGy and DLP is 785.3 mGy-cm. This CT exam was performed using one or more of the following dose reduction techniques: automated exposure control, adjustment of the mA and/or kV according to patient size, and/or use of iterative reconstruction technique. COMPARISON: No relevant prior studies available. FINDINGS: The mandible is intact. Intact maxillary alveolus. No orbital floor fracture. The intraorbital contents are grossly unremarkable. Intact nasal bone, nasal septum, and maxillary spine. The zygomatic arches and pterygoid processes are intact. IMPRESSION: No facial bone fracture.
[2024-08-05] MEDS: NICOTINE 14MG/24HR PATCH TRANSDERM STA (01:53)
--- NOTE | 2024-08-05 02:44 | ED ---
Fall HPI - General Source: patient, EMS <Krista Sawyer - Last Filed: 08/05/24 03:46> <Darin Mckeon - Last Filed: 08/05/24 09:50> - General Chief Complaint: Fall Stated Complaint: Fall Time Seen by Provider: 08/05/24 00:40 - History of Present Illness Initial Comments: 63-year-old male brought in for head injury. Patient is intoxicated and fell hitting his face. Unable to provide much meaningful history due to intoxication at this time. He has scrapes and swelling to the right periorbital region. Denies loss of consciousness or blood thinners. Normally drinks a pint per day. (Krista Sawyer) - Related Data Home Medications Medication Instructions Recorded Confirmed Atorvastatin Calcium [Lipitor] 1 tab PO DAILY 05/31/20 05/31/20 amLODIPine BESYLATE 1 tab PO DAILY 05/31/20 05/31/20 Allergies Allergy/AdvReac Type Severity Reaction Status Date / Time Penicillins Allergy Unknown Verified 08/05/24 00:28 Childhood Review of Systems ROS Other: All systems not noted in ROS Statement are negative. <Krista Sawyer - Last Filed: 08/05/24 03:46> ROS Other: All systems not noted in ROS Statement are negative. <Darin Mckeon - Last Filed: 08/05/24 09:50> ROS Statement: Those systems with pertinent positive or pertinent negative responses have been documented in the HPI. Past Medical History Past Medical History: Hypertension History of Any Multi-Drug Resistant Organisms: None Reported Past Surgical History: Appendectomy, Hernia Repair Additional Past Surgical History / Comment(s): RIGHT KNEE CYST REMOVAL Past Anesthesia/Blood Transfusion Reactions: No Reported Reaction Past Psychological History: No Psychological Hx Reported Smoking Status: Current every day smoker Past Alcohol Use History: Daily Past Drug Use History: None Reported - Past Family History Family Family Medical History: Cancer, Diabetes Mellitus <Krista Sawyer - Last Filed: 08/05/24 03:46> General Exam Limitations: no limitations General appearance: alert, appears intoxicated Expanded Head exam: Present: abrasion, hematoma Eye exam: Present: PERRL, EOMI Pupils: Present: normal accommodation Neck exam: Present: normal inspection. Absent: meningismus Respiratory exam: Present: normal lung sounds bilaterally. Absent: respiratory distress, wheezes, rales, rhonchi, stridor Cardiovascular Exam: Present: regular rate, normal rhythm, normal heart sounds. Absent: systolic murmur, diastolic murmur, rubs, gallop, clicks Neurological exam: Present: alert (intoxicated) Expanded Eye Response: (4) open spontaneously Motor Response: (6) obeys commands Verbal Response: (5) oriented Jan Total: 15 Skin exam: Present: normal color <Krista Sawyer - Last Filed: 08/05/24 03:46> Course Vital Signs 08/05/24 08/05/24 08/05/24 00:29 01:30 05:38 Temperature 98.0 F 97.4 F L Pulse Rate 86 84 83 Respiratory 18 23 18 Rate Blood Pressure 90/74 115/77 115/68 O2 Sat by Pulse 98 99 97 Oximetry 08/05/24 08:55 Temperature 97.7 F Pulse Rate 77 Respiratory 14 Rate Blood Pressure 127/87 O2 Sat by Pulse 98 Oximetry Medical Decision Making - Lab Data Result diagrams: 08/05/24 00:53 08/05/24 00:53 <Krista Sawyer - Last Filed: 08/05/24 03:46> - Lab Data Result diagrams: 08/05/24 00:53 08/05/24 00:53 <Darin Mckeon - Last Filed: 08/05/24 09:50> - Medical Decision Making Was pt. sent in by a medical professional or institution ([facility], [facility] [employer], urgent care, hospital, or [facility]...) When possible be specific @ -[No] Did you speak to anyone other than the patient for history (EMS, parent, family, police, friend...)? What history was obtained from this source @ -[No] Did you review nursing and triage notes (agree or disagree)? Why? @ -[I reviewed and agree with nursing and triage notes] Were old charts reviewed (outside hosp., previous admission, EMS record, old EKG, old radiological studies, urgent care reports/EKG's, [facility] records)? Report findings @ -[No old charts were reviewed] Differential Diagnosis (chest pain, altered mental status, abdominal pain women, abdominal pain men, vaginal bleeding, weakness, fever, dyspnea, syncope, headache, dizziness, GI bleed, back pain, seizure, CVA, palpatations, mental health, musculoskeletal)? @ -Differential fracture, hemorrhage, concussion, this is not an all-inclusive list EKG interpreted by me (3pts min.). @ -EKG shows sinus rhythm ventricular rate 81. [place] interval 156. QRS 98. QT 374. QTc 411. X-rays interpreted by me (1pt min.). @ -[None done] CT interpreted by me (1pt min.). @ -CT shows no acute intracranial hemorrhage, midline shift, or mass effect. No acute fracture or subluxation of the cervical spine. No facial bone fracture U/S interpreted by me (1pt. min.). @ -[None done] What testing was considered but not performed or refused? (CT, X-rays, U/S, labs)? Why? @ -[None] What meds were considered but not given or refused? Why? @ -[None] Did you discuss the management of the patient with other professionals (professionals i.e. , PA, [employer], lab, RT, psych nurse, social worker psychiatric, backup engineer, teacher, legal officer, case checker)? Give summary @ -[No] Was smoking cessation discussed for >3mins.? @ -[No] Was critical care preformed (if so, how long)? @ -[No] Were there social determinants of health that impacted care today? How? (Homel essness, low income, unemployed, alcoholism, drug addiction, transportation, low edu. Level, literacy, decrease access to med. care, custodial, rehab)? @ -[No] Was there de-escalation of care discussed even if they declined (Discuss DNR or withdrawal of care, Hospice)? DNR status @ -[No] What co-morbidities impacted this encounter? (DM, HTN, Smoking, COPD, CAD, Cancer, CVA, ARF, Chemo, Hep., AIDS, mental health diagnosis, sleep apnea, morbid obesity)? @ -[None] Was patient admitted / discharged? Hospital course, mention meds given and route, prescriptions, significant lab abnormalities, going to OR and other pertinent info. @ -63-year-old male presenting for evaluation post head injury. Patient was drinking tonight, normally drinks a pint per day. Serum alcohol is 291. Patient will be sober in [address] of the brain, cervical spine, and facial bones. Patient will be observed until sober. Patient did require 1 mg of Ativan IM due to agitation. Signed out to my attending Undiagnosed new problem with uncertain prognosis? @ -[No] Drug Therapy requiring intensive monitoring for toxicity (Heparin, Nitro, Insulin, Cardizem)? @ -[No] Were any procedures done? @ -[No] Diagnosis/symptom? @ -Alcohol intoxication, head injury Acute, or Chronic, or Acute on Chronic? @ -Acute Uncomplicated (without systemic symptoms) or Complicated (systemic symptoms)? @ -Uncomplicated Side effects of treatment? @ -[No] Exacerbation, Progression, or Severe Exacerbation? @ -[No] Poses a threat to life or bodily function? How? (Chest pain, [place], NH, pneumonia, PE, COPD, DKA, ARF, appy, cholecystitis, CVA, Diverticulitis, Homicidal, Suicidal, threat to staff... and all critical care pts) @ -[No] (Krista Sawyer) Patient reevaluated and resting comfortably in bed. Patient requesting discharge home. Patient is alert and oriented and has steady gait. No neurological deficits. Patient request medication for discomfort for the fall. Report reviewed. (Darin Mckeon) - Lab Data Lab Results 08/05/24 08/05/24 Range/Units 00:53 00:53 WBC 7.7 (3.8-10.6) k/uL RBC 4.16 L (4.30-5.90) m/uL Hgb 14.7 (13.0-17.5) gm/dL Hct 42.1 (39.0-53.0) % MCV 101.0 H (80.0-100.0) fL MCH 35.3 H (25.0-35.0) pg MCHC 35.0 (31.0-37.0) g/dL RDW 13.6 (11.5-15.5) % Plt Count 290 (150-450) k/uL MPV 7.0 Neutrophils % 62 % Lymphocytes % 27 % Monocytes % 7 % Eosinophils % 1 % Basophils % 0 % Neutrophils # 4.8 (1.3-7.7) k/uL Lymphocytes # 2.1 (1.0-4.8) k/uL Monocytes # 0.6 (0-1.0) k/uL Eosinophils # 0.1 (0-0.7) k/uL Basophils # 0.0 (0-0.2) k/uL Macrocytosis Slight Sodium 137 (137-145) mmol/L Potassium 4.6 (3.5-5.1) mmol/L Chloride 104 (98-107) mmol/L Carbon Dioxide 23 (22-30) mmol/L Anion Gap 10 mmol/L BUN 12 (9-20) mg/dL Creatinine 0.78 (0.66-1.25) mg/dL Est GFR (CKD-EPI)AfAm >90 (>60 ml/min/1.73 sqM) Est GFR (CKD-EPI)NonAf >90 (>60 ml/min/1.73 sqM) Glucose 90 (74-99) mg/dL Calcium 9.1 (8.4-10.2) mg/dL Total Bilirubin 0.5 (0.2-1.3) mg/dL AST 36 (17-59) U/L ALT 25 (4-49) U/L Alkaline Phosphatase 99 (38-126) U/L Total Protein 7.0 (6.3-8.2) g/dL Albumin 4.5 (3.5-5.0) g/dL Serum Alcohol 291 H* mg/dL Disposition <Krista Sawyer - Last Filed: 08/05/24 03:46> Is patient prescribed a controlled substance at d/c from ED?: No Time of Disposition: 09:50 <Darin Mckeon - Last Filed: 08/05/24 09:50> Clinical Impression: Fall, Alcohol intoxication Disposition: HOME SELF-CARE Condition: Stable Instructions (If sedation given, give patient instructions): Fall Prevention (ED), Head Injury (ED), Alcohol Intoxication (ED) Additional Instructions: [id number] Tylenol if needed. Decrease alcohol use. Please follow-up w ith primary care physician in the next couple of days for recheck. Return for increased pain, confusion, difficulty walking, worsening symptoms or any other concerns Referrals: Heron Bowman MD [STAFF PHYSICIAN] - 1-2 days Forms: Area PCPs
[2024-08-05] MEDS: LORazepam 2 MG/ML INJ IM STA (02:51)
[2024-08-05 08:57] VITALS: RESP 14; TEMP 97.7
[2024-08-05] MEDS: ACETAMINOPHEN TAB 500 MG TAB PO STA (09:58)
[2024-08-05 10:18] VITALS: BP 130/72; PULSE 78
== END 2024-08-05 10:19 | disposition home or self-care (01) ==
LOC: EC 00:24
DX: S09.90XA Unspecified injury of head, initial encounter (principal); F10.129 Alcohol abuse with intoxication, unspecified; F17.200 Nicotine dependence, unspecified, uncomplicated; Z88.0 Allergy status to penicillin; Y90.8 Blood alcohol level of 240 mg/100 ml or more; W19.XXXA Unspecified fall, initial encounter
CPT/HCPCS: 36415; 80053; 85025; 72125; 70486; 70450; 99284; 96360; 96372; G0480; S4990; J2060; 80320